=== PATIENT | female | born 1970 | race Caucasian/White ===

== ENCOUNTER 2022-08-19 22:55 | Inpatient (IN) | payer OTHER ==
[~2022-08-19] VITALS: Ht 160 cm; Wt 93.9 kg
[2022-08-19 23:29] LABS: BASO % 0.3 % (0.0-1.0); EOS % 0.2 % (0.0-3.0); HEMATOCRIT 36.1 % (36.0-47.0); HEMOGLOBIN 11.7 g/dl (12.0-15.5); LYMPH # 1.9 10^3/uL (1.5-5.0); LYMPH % 15.4 % (24.0-44.0); MEAN CORPUSCULAR HEMOGLOBIN 30.8 pg (27.0-33.0); MEAN CORPUSCULAR HGB CONC 32.4 g/dl (32.0-36.5); MONO # 0.8 10^3/uL (0.0-0.8); MONO % 6.3 % (2.0-8.0); NEUTROPHILS # 9.3 10^3/uL (1.5-8.5); NEUTROPHILS % 76.5 % (36.0-66.0); PLATELET COUNT, AUTOMATED 384 10^3/uL (150-450); WHITE BLOOD COUNT 12.2 10^3/uL (4.0-10.0)
[2022-08-19] MEDS ORDERED: IPRATROPIUM 0.5MG/ALBUTEROL 2.5MG INH SOL UD 3ML (DUONEB) NEB ONE (23:35)
[2022-08-20] VITALS (23 sets, daily range): BP systolic 141–177; BP diastolic 72–116; O2SAT 98–100
[2022-08-20 00:01] LABS: C REACTIVE PROTEIN QUANTITATIV < 0.40 MG/DL (<1.0)
[2022-08-20 00:02] LABS: AMYLASE 56 U/L (30-118); CPK CREATINE PHOSPHOKINASE 106 U/L (34-145)
[2022-08-20 00:05] LABS: INR 1.2; PARTIAL THROMBOPLASTIN TIME 25.1 SECONDS (24.8-34.2); PROTHROMBIN TIME 15.5 SECONDS (12.5-14.5)
[2022-08-20 00:06] LABS: RSV AMPLIFICATION NEGATIVE (NEGATIVE)
[2022-08-20 00:17] LABS: ALBUMIN 3.8 G/DL (3.2-5.2); ALKALINE PHOSPHATASE 52 U/L (46-116); ALT/SGPT 28 U/L (7.0-40); AST/SGOT 19 U/L (<34); BILIRUBIN,DIRECT 0.2 MG/DL (<0.4); BILIRUBIN,TOTAL 0.6 MG/DL (0.3-1.2); BLOOD UREA NITROGEN 8 MG/DL (9-23); CALCIUM LEVEL 8.4 MG/DL (8.5-10.1); CARBON DIOXIDE LEVEL 19 MMOL/L (20-31); CHLORIDE LEVEL 98 MMOL/L (98-107); CK-MB VALUE MASS 1.3 NG/ML (<3.6); CREATININE FOR GFR 0.74 MG/DL (0.55-1.30); GLOMERULAR FILTRATION RATE > 60.0 (>51); GLUCOSE, FASTING 141 MG/DL (60-100); MB/CK RELATIVE INDEX 1.22 (< OR =4); POTASSIUM SERUM 3.3 MMOL/L (3.5-5.1); SODIUM LEVEL 134 MMOL/L (136-145); TOTAL PROTEIN 6.8 G/DL (5.7-8.2)
[2022-08-20] MEDS ORDERED: NS 2,790 ML in IV 1 EA IV ONE (00:35)
[2022-08-20] MEDS ORDERED: cefTRIAXone SOD 1 GM in D5W MINI-BAG PLUS 50 ML IV ONE (01:10)
[2022-08-20] MEDS ORDERED: AZITHROMYCIN 250MG TABLET PO ONE (01:10)
[2022-08-20] MEDS ORDERED: levETIRAcetam INJection 1,000 MG in D5W 100 ML IV ONE (02:25)
[2022-08-20] MEDS ORDERED: IPRATROPIUM 0.5MG/ALBUTEROL 2.5MG INH SOL UD 3ML (DUONEB) NEB ONE (02:35)
[2022-08-20] MEDS ORDERED: HOME MED LIST COMPLETE! XX SCH (02:55)
[2022-08-20 03:15] LABS: CK-MB VALUE MASS 2.9 NG/ML (<3.6)
[2022-08-20] MEDS ORDERED: GLUCOSE 4GM CHEW TABLET PO PRN (03:35)
[2022-08-20] MEDS ORDERED: ONDANSETRON 4MG 2ML VIAL IV PRN (03:35)
[2022-08-20] MEDS ORDERED: DEXTROSE 50% 50ML SYRINGE IV PRN (03:35)
[2022-08-20] MEDS ORDERED: ALBUTEROL SULFATE 2.5MG/0.5ML INH NEB SOLN NEB PRN (03:35)
[2022-08-20] MEDS ORDERED: GLUCAGON INJ 1MG VIAL SC PRN (03:35)
[2022-08-20 03:44] LABS: MB/CK RELATIVE INDEX 1.75 (< OR =4)
[2022-08-20] MEDS ORDERED: FUROSEMIDE 100MG/10ML VIAL IV ONE (04:00)
[2022-08-20] MEDS ORDERED: THIAMINE 200MG 2ML VIAL IM ONE (04:00)
[2022-08-20] MEDS ORDERED: methylPREDNISolone 40MG 1ML VIAL IV ONE (04:00)
[2022-08-20 04:29] LABS: APPEARANCE, URINE CLEAR (CLEAR); BACTERIA, URINE AUTO 1+ (NEGATIVE); BILIRUBIN, URINE AUTO NEGATIVE (NEGATIVE); BLOOD, URINE BLOOD NEGATIVE (NEGATIVE); COLOR, URINE YELLOW (YELLOW); GLUCOSE, URINE (UA) AUTO NEGATIVE (NEGATIVE); KETONE, URINE AUTO NEGATIVE (NEGATIVE); LEUKOCYTE ESTERASE, URINE AUTO NEGATIVE (NEGATIVE); MUCUS, URINE SMALL (NEGATIVE); NITRITE, URINE AUTO NEGATIVE (NEGATIVE); PROTEIN, URINE AUTO 2+ mg/dL (NEGATIVE); RBC, URINE AUTO 1 /HPF (0-3); SPECIFIC GRAVITY URINE AUTO 1.009 (1.002-1.035); SQUAMOUS EPITHELIAL CELL UR AU 1 /HPF (0-6); UROBILINOGEN, URINE AUTO 0.2 mg/dL (0.0-2.0); WBC, URINE AUTO 1 /HPF (0-3)
[2022-08-20] MEDS ORDERED: MAALOX 30 ML SUSP *UDC PO ONE (04:30)
[2022-08-20] MEDS: ASPIRIN 81MG CHEW TABLET PO ONE ×2 (04:35→05:06)
[2022-08-20 04:38] LABS: ABG BASE EXCESS -2.5 (-2.0-2.0); ABG HCO3 21.1 MEQ/L (22.0-26.0); ABG O2 SATURATION 91.5 % (95.0-99.0); ABG PARTIAL PRESSURE CO2 33.4 mmHg (35.0-45.0); ABG STANDARD HCO3 22.2 MEQ/L (22.0-26.0); ABG TOTAL CO2 22.2 MEQ/L (22.0-29.0); ABG pH (ARTERIAL) 7.419 UNITS (7.350-7.450)
[2022-08-20] MEDS ORDERED: NITROGLYCERIN 2% OINT 1 GM *U/D* PKT TOP ONE (05:00)
[2022-08-20] MEDS: HEPARIN SOD (PORCINE) 5000UNITS/ML 1ML VIAL/SYRINGE SC SCH ×3 (05:36→21:06)
[2022-08-20] MEDS ORDERED: PIPERACILLIN/TAZOBACTAM SOD 4.5 GM in D5W MINI-BAG PLUS 50 ML IV SCH (06:00)
[2022-08-20] MEDS ORDERED: INSULIN LISPRO (NovoLOG) PER UNIT SC SCH (06:00)
[2022-08-20] MEDS: IPRATROPIUM 0.5MG/ALBUTEROL 2.5MG INH SOL UD 3ML (DUONEB) NEB SCH ×3 (07:46→19:26)
[2022-08-20] MEDS: KCL 10MEQ/100ML SWI (KRUN) 10 MEQ in IV 1 EA IV SCH ×2 (07:50→09:08)
[2022-08-20] MEDS ORDERED: PANTOPRAZOLE 40MG VIAL IV SCH (09:00)
[2022-08-20] MEDS ORDERED: amLODIPine 5 MG TAB PO SCH (09:00)
[2022-08-20] MEDS: FOLIC ACID 1MG TAB PO SCH (09:19)
[2022-08-20] MEDS: MULTIVITAMINS/MINERALS THERAP 1 TAB PO SCH (09:19)
[2022-08-20] MEDS ORDERED: LORazepam 2 MG TAB PO PRN (10:20)
[2022-08-20] MEDS ORDERED: FUROSEMIDE 40MG/4ML VIAL IV ONE (11:00)
[2022-08-20] MEDS ORDERED: methylPREDNISolone 125MG 2ML VIAL IV SCH (12:00)
[2022-08-20 12:26] LABS: BASO % 0.1 % (0.0-1.0); HEMATOCRIT 36.5 % (36.0-47.0); HEMOGLOBIN 12.5 g/dl (12.0-15.5); LYMPH # 1.5 10^3/uL (1.5-5.0); LYMPH % 10.8 % (24.0-44.0); MEAN CORPUSCULAR HEMOGLOBIN 31.2 pg (27.0-33.0); MEAN CORPUSCULAR HGB CONC 34.2 g/dl (32.0-36.5); MONO # 0.5 10^3/uL (0.0-0.8); MONO % 3.6 % (2.0-8.0); NEUTROPHILS # 11.7 10^3/uL (1.5-8.5); NEUTROPHILS % 85.1 % (36.0-66.0); PLATELET COUNT, AUTOMATED 395 10^3/uL (150-450); RED BLOOD COUNT 4.01 10^6/uL (4.00-5.40); WHITE BLOOD COUNT 13.7 10^3/uL (4.0-10.0)
[2022-08-20 12:41] LABS: HEMOGLOBIN A1c 5.1 % (4.0-6.0)
[2022-08-20 12:50] LABS: BLOOD UREA NITROGEN 9 MG/DL (9-23); CALCIUM LEVEL 8.8 MG/DL (8.5-10.1); CARBON DIOXIDE LEVEL 25 MMOL/L (20-31); CHLORIDE LEVEL 100 MMOL/L (98-107); CREATININE FOR GFR 0.71 MG/DL (0.55-1.30); GLOMERULAR FILTRATION RATE > 60.0 (>51); GLUCOSE, FASTING 125 MG/DL (60-100); POTASSIUM SERUM 3.6 MMOL/L (3.5-5.1); SODIUM LEVEL 138 MMOL/L (136-145)
[2022-08-20 13:21] LABS: CHOLESTEROL LEVEL 272 MG/DL (<200); CHOLESTEROL RISK RATIO 4.23 (<5); HDL CHOLESTEROL 64.2 MG/DL (>40); LDL CHOLESTEROL 185.2 MG/DL (<100); NON-HDL-C 208 MG/DL; TRIGLYCERIDES LEVEL 113 MG/DL (<150)
[2022-08-20] MEDS ORDERED: ACETAMINOPHEN TAB 650MG DOSE (2X325MG) PO PRN (15:00)
[2022-08-20] MEDS: ATORVASTATIN 20 MG TAB PO SCH (15:01)
[2022-08-20] MEDS ORDERED: levETIRAcetam INJection 500 MG in D5W MINI-BAG PLUS 100 ML IV SCH (16:00)
[2022-08-20] MEDS: levETIRAcetam 250MG TABLET (KEPPRA) PO SCH (20:38)
[2022-08-20] MEDS: methylPREDNISolone 40MG 1ML VIAL IV SCH (20:38)
[2022-08-21] VITALS: BP 143/76
[2022-08-21] MEDS: IPRATROPIUM 0.5MG/ALBUTEROL 2.5MG INH SOL UD 3ML (DUONEB) NEB SCH ×3 (01:41→14:00)
[2022-08-21] MEDS ORDERED: AZITHROMYCIN INJ 500 MG, VIAL MATE ADAPTER 1 EACH in D5W 250 ML IV SCH (02:00)
[2022-08-21 04:00] VITALS: BP 133/66
[2022-08-21] MEDS: methylPREDNISolone 40MG 1ML VIAL IV SCH (04:08)
[2022-08-21 04:56] LABS: HEMATOCRIT 34.6 % (36.0-47.0); HEMOGLOBIN 11.5 g/dl (12.0-15.5); MEAN CORPUSCULAR HEMOGLOBIN 30.7 pg (27.0-33.0); MEAN CORPUSCULAR HGB CONC 33.2 g/dl (32.0-36.5); MEAN CORPUSCULAR VOLUME 92.3 fl (80.0-96.0); PLATELET COUNT, AUTOMATED 331 10^3/uL (150-450); RED BLOOD COUNT 3.75 10^6/uL (4.00-5.40); WHITE BLOOD COUNT 14.4 10^3/uL (4.0-10.0)
[2022-08-21 05:50] LABS: CALCIUM LEVEL 8.6 MG/DL (8.5-10.1); CARBON DIOXIDE LEVEL 26 MMOL/L (20-31); CHLORIDE LEVEL 101 MMOL/L (98-107); CHOLESTEROL LEVEL 252 MG/DL (<200); CHOLESTEROL RISK RATIO 4.54 (<5); CREATININE FOR GFR 0.73 MG/DL (0.55-1.30); GLOMERULAR FILTRATION RATE > 60.0 (>51); GLUCOSE, FASTING 114 MG/DL (60-100); HDL CHOLESTEROL 55.4 MG/DL (>40); MAGNESIUM LEVEL 1.9 MG/DL (1.8-2.4); NON-HDL-C 197 MG/DL; POTASSIUM SERUM 3.5 MMOL/L (3.5-5.1); SODIUM LEVEL 138 MMOL/L (136-145)
[2022-08-21] MEDS: HEPARIN SOD (PORCINE) 5000UNITS/ML 1ML VIAL/SYRINGE SC SCH ×2 (06:00→14:00)
[2022-08-21 06:35] LABS: BLOOD UREA NITROGEN 16 MG/DL (9-23)
[2022-08-21 08:08] VITALS: BP 140/70
[2022-08-21] MEDS ORDERED: THIAMINE 100 MG TAB PO SCH (09:00)
[2022-08-21] MEDS ORDERED: ASPIRIN 81MG CHEW TABLET PO SCH (09:00)
[2022-08-21] MEDS ORDERED: AUGMENTIN 875 MG TAB PO SCH (09:00)
[2022-08-21] MEDS ORDERED: THIAMINE 200MG 2ML VIAL IM SCH (09:00)
[2022-08-21] MEDS ORDERED: PANTOPRAZOLE 40MG TAB (PROTONIX) PO SCH (09:00)
[2022-08-21] MEDS: ATORVASTATIN 20 MG TAB PO SCH (09:06)
[2022-08-21 09:07] VITALS: BP 140/70
[2022-08-21] MEDS: MULTIVITAMINS/MINERALS THERAP 1 TAB PO SCH (09:07)
[2022-08-21] MEDS: levETIRAcetam 250MG TABLET (KEPPRA) PO SCH (09:07)
[2022-08-21] MEDS: FOLIC ACID 1MG TAB PO SCH (09:07)
[2022-08-21 09:10] LABS: LDL CHOLESTEROL 169.6 MG/DL (<100); TRIGLYCERIDES LEVEL 135 MG/DL (<150)
[2022-08-21] MEDS ORDERED: predniSONE 20 MG TAB PO SCH (12:00)
[2022-08-21 12:30] VITALS: BP 146/75
[2022-08-21] MEDS ORDERED: POTASSIUM CHLORIDE 10MEQ SR TABLET PO ONE (12:55)
[2022-08-21] MEDS ORDERED: THIA100TA PO ×2 (13:10→14:29)
[2022-08-21] MEDS ORDERED: PANT40TA29 PO ×2 (13:10→14:29)
[2022-08-21] MEDS ORDERED: ATOR40TA75 PO ×2 (13:10→14:29)
[2022-08-21] MEDS ORDERED: FOLI1TAB11 PO ×2 (13:10→14:29)
[2022-08-21] MEDS ORDERED: PRED20TA PO ×2 (13:10→14:29)
[2022-08-21] MEDS ORDERED: LISI20TA33 PO ×2 (13:10→14:29)
[2022-08-21] MEDS ORDERED: AMOX875T2 PO ×2 (13:10→14:29)
[2022-08-21] MEDS ORDERED: ASPI81CH33 PO ×2 (13:10→14:29)
[2022-08-21] MEDS ORDERED: COMBAER6 INH ×3 (13:10→14:29)
[2022-08-21] MEDS ORDERED: ALBU6.7H6 INH (18:02)
[2022-08-23 15:10] LABS: BODY FLUID CULTURE Not indicated. (.); LEGIONELLA ANTIGEN URINE Negative (Negative); ORGANISM ID Not indicated. (.); SPECIMEN SOURCE Urine (.); URINE STREP PNEUMONIAE ANTIGEN Negative (Negative)
== END 2022-08-21 17:10 | disposition home or self-care (01) | DRG 871 ==
LOC: EDBD 22:55 → M ED 22:55 → M ED INP 08-20 03:24 → M ICU 08-20 04:40
PROVIDERS: ADMIT Internal Medicine; ATTEND Internal Medicine
DX: A41.9 Sepsis, unspecified organism (principal); J69.0 Pneumonitis due to inhalation of food and vomit; J96.01 Acute respiratory failure with hypoxia; R65.21 Severe sepsis with septic shock; J18.9 Pneumonia, unspecified organism; E87.20 Acidosis, unspecified; J44.1 Chronic obstructive pulmonary disease with (acute) exacerbation; F10.20 Alcohol dependence, uncomplicated; F17.210 Nicotine dependence, cigarettes, uncomplicated; G40.409 Other generalized epilepsy and epileptic syndromes, not intractable, without status epilepticus; A08.8 Other specified intestinal infections; D72.829 Elevated white blood cell count, unspecified; I10 Essential (primary) hypertension; E28.2 Polycystic ovarian syndrome; F32.A Depression, unspecified; Z79.899 Other long term (current) drug therapy; Z79.82 Long term (current) use of aspirin; I25.10 Atherosclerotic heart disease of native coronary artery without angina pectoris